=== PATIENT | female | born 1990 | race Caucasian/White ===

== ENCOUNTER 2016-05-18 16:46 | Emergency (ER) | payer BC ==
[2016-05-18] MEDS ORDERED: ONDANSETRON 4 MG/2 ML VIAL IVP STA (17:07)
[2016-05-18] MEDS ORDERED: SODIUM CHLORIDE 0.9% 1,000 ML IV ONE (17:07)
[2016-05-18] MEDS ORDERED: ONDANSETRON 4 MG/2 ML VIAL ONE (17:15)
[2016-05-18] MEDS ORDERED: ONDANSETRON ODT 4 MG Prepack 2 TL STA (18:20)
[2016-05-18] MEDS ORDERED: ONDANSETRON ODT 4 MG Prepack 2 TL ONE (18:23)
== END 2016-05-18 18:32 | disposition home or self-care (01) ==
DX: S09.90XA Unspecified injury of head, initial encounter (principal); K52.9 Noninfective gastroenteritis and colitis, unspecified; W07.XXXA Fall from chair, initial encounter

== ENCOUNTER 2017-06-12 08:35 | Outpatient (CLI) | payer OTHER ==
--- NOTE | 2017-06-12 13:21 | MRI Report ---
EXAM: RIGHT KNEE MRI WITHOUT CONTRAST EXAM DATE: 06/12/2017 09:56 AM. CLINICAL HISTORY: Right knee pain after running 1 month ago. Right knee swelling and bruising. COMPARISON: None. TECHNIQUE: Multiplanar, multisequence T1-weighted and fluid-sensitive sequences of the knee without c ontrast. Other: None. FINDINGS: Bones and articular cartilage: There is an approximately 2.3 cm AP by 1.6 cm medial to lateral nondis placed, stress type fracture at the medial aspect of the proximal tibial metaphysis. Larger area of m arrow edema around the fracture line. No bone lesions. Minimal marrow edema at the medial femoral con dyle. Articular cartilage is within normal limits. Medial Meniscus: The medial meniscus is intact. Lateral Meniscus: The lateral meniscus is intact. Cruciate Ligaments: The anterior and posterior cruciate ligaments are intact. Collateral Ligaments: The medial collateral and lateral collateral ligamentous structures are intact. Tendons: The quadriceps, patellar, semimembranosus, and popliteus tendons are unremarkable. Musculature: No edema or fatty atrophy. Other: No effusion. No popliteal cyst. No loose bodies. The medial and lateral retinacula are intact . Minimal subcutaneous edema at the anteromedial aspect of the knee. IMPRESSION: 1. Nondisplaced stress-type fracture at the medial aspect of the proximal tibial metaphysis. 2. No ligament or meniscal injury. 3. Minimal subcutaneous edema at the anteromedial aspect of the knee. [facility] MUSCULOSKELETAL RADIOLOGY SECTION The above findings were discussed with Quinn Callaway by Dr. Carson Lazcano at 13:19 hrs on 06/12/17. Referring Provider Line: [phone] SITE ID: [id number]
== END 2017-06-12 08:36 | disposition home or self-care (01) ==
LOC: DI 08:35
PROVIDERS: ATTEND Family Medicine
DX: M84.361A Stress fracture, right tibia, initial encounter for fracture (principal); R60.0 Localized edema

== ENCOUNTER 2017-08-17 13:27 | Emergency (ER) | payer MEDICAID, OTHER ==
[2017-08-17 13:55] VITALS: BP 139/78
--- NOTE | 2017-08-17 15:53 | ED Physician Documentation ---
PD HPI SKIN - Stated complaint Stated Complaint: BODY RASH - Chief complaint Chief Complaint: Wound - History obtained from History obtained from: Patient - History of Present Illness Timing - onset: Other (Several days worth of itchy burning rash especially on the dorsal forearms but also the anterior chest and the back of the neck. She has never had this before and there was no clear trigger. 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 There is no associated chest pain , breathing troubles, shortness of breath, or possibility of .) Review of Systems Constitutional: denies: Fever, Chills Nose: denies: Rhinorrhea / runny nose, Congestion Throat: denies: Sore throat Cardiac: denies: Chest pain / pressure, Palpitations Respiratory: denies: Dyspnea, Cough PD PAST MEDICAL HISTORY - Past Medical History Past Medical History: Yes Endocrine/Autoimmune: HyPOthyroidism - Past Surgical History Past Surgical History: No - Present Medications Home Medications: Ambulatory Orders Medication Instructions Recorded Confirmed predniSONE [Deltasone] 60 mg PO DAILY 5 Days tablet 08/17/17 - Allergies Allergies/Adverse Reactions: Allergies Allergy/AdvReac Type Severity Reaction Status Date / Time No Known Drug Allergies Allergy Verified 08/17/17 13:55 - Social History Does the pt smoke?: No Smoking Status: Never smoker Does the pt drink ETOH?: Yes Does the pt have substance abuse?: No - Immunizations Immunizations are current?: Yes - POLST Patient has POLST: No PD ED PE NORMAL - Vitals Vital signs reviewed: Yes - General General: Alert and oriented X 3, No acute distress - HEENT HEENT: Pharynx benign - Derm Derm: Other (She has a clear contact dermatitis that is focused over the dorsal forearms bilaterally, especially the left, mild to the back of the neck.) - Neuro Neuro: Alert and oriented X 3, Normal speech - Psych Psych: Normal mood, Normal affect Results - Vitals Vitals: Vital Signs - 24 hr 08/17/17 13:53 Temperature 36.8 C Heart Rate 75 Respiratory 16 Rate Blood Pressure 139/78 H O2 Saturation 100 Oxygen O2 Source Room air Departure - Departure Disposition: Home, Self Care Clinical Impression: Contact dermatitis Qualifiers: Contact dermatitis type: unspecified Contact dermatitis trigger: unspecified trigger Qualified Code(s): L25.9 - Unspecified contact dermatitis, unspecified cause Condition: Good Record reviewed to determine appropriate education?: Yes Instructions: ED Dermatitis Contact Follow-Up: [facility] [Provider Group] Prescriptions: predniSONE [Deltasone] 60 mg PO DAILY 5 Days tablet Comments: Your blood pressure was elevated today on check into the emergency department. This does not mean that you have hypertension, it is a common phenomenon to come to the emergency department and have elevated blood pressure. I recommend that you see your primary care physician within the week to have it rechecked when you are feeling better.
== END 2017-08-17 16:02 | disposition home or self-care (01) ==
LOC: ED 13:27
DX: L25.9 Unspecified contact dermatitis, unspecified cause (principal); R03.0 Elevated blood-pressure reading, without diagnosis of hypertension; E03.9 Hypothyroidism, unspecified
CPT/HCPCS: 99283

== ENCOUNTER 2018-01-06 08:59 | Emergency (ER) | payer MEDICAID ==
[2018-01-06] MEDS ORDERED: BENZOCAINE/MENTHOL LOZENGE MM STA ×2 (11:32→11:45)
[2018-01-06] MEDS ORDERED: BENZONATATE 100 MG CAPSULE PO STA (11:32)
--- NOTE | 2018-01-06 11:34 | ED Physician Documentation ---
History of Present Illness - Stated complaint Stated Complaint: SIMON/CONGESTION - Chief complaint Chief Complaint: Resp - Additonal information Additional information: hx from pt 3 days of head congestion sore throat cough and myalgias Review of Systems Constitutional: reports: Chills, Myalgias. denies: Fever Nose: reports: Congestion Throat: reports: Sore throat Respiratory: reports: Cough GI: reports: Diarrhea. denies: Vomiting : denies: Now EGA (denies) Endocrine: denies: Easy bruising / bleeding Immunocompromised: denies: Immunocompromised PD PAST MEDICAL HISTORY - Past Medical History Respiratory: Pneumonia, Other Endocrine/Autoimmune: HyPOthyroidism Other Past Medical History: bronchitis - Past Surgical History Past Surgical History: No - Present Medications Home Medications: Ambulatory Orders Medication Instructions Recorded Confirmed Azithromycin [Zithromax] 250 mg PO DAILY #6 tablet 01/06/18 Benzonatate [Tessalon] 100 mg PO TID PRN #20 capsule 01/06/18 Fluticasone [Flonase] 1 sprays SHANNAN BID PRN #1 bottle 01/06/18 guaiFENesin/DEXTROMETHORPHAN 10 ml PO Q6H PRN #120 ml 01/06/18 [Robitussin Dm] - Allergies Allergies/Adverse Reactions: Allergies Allergy/AdvReac Type Severity Reaction Status Date / Time No Known Drug Allergies Allergy Verified 01/06/18 09:17 - Social History Does the pt smoke?: No Smoking Status: Never smoker Does the pt drink ETOH?: No Does the pt have substance abuse?: No - Immunizations Immunizations are current?: No Immunizations: TDAP >10years/unknown - POLST Patient has POLST: No PD ED PE NORMAL - Vitals Vital signs reviewed: Yes - General General: Other (looks miserable) - HEENT HEENT: Ears normal, Moist mucous membranes. No: Pharynx benign (erytehma no exudate) - Neck Neck: Supple, no meningeal sign - Cardiac Cardiac: RRR - Respiratory Respiratory: No respiratory distress, Clear bilaterally - Extremities Extremities: No edema, No calf tenderness / cord Results - Vitals Vitals: Vital Signs - 24 hr 01/06/18 01/06/18 09:15 11:54 Temperature 36.6 C 36.7 C Heart Rate 66 62 Respiratory 14 18 Rate Blood Pressure 130/86 H 137/86 H O2 Saturation 100 99 Oxygen O2 Source Room air - Labs Labs: Laboratory Tests 01/06/18 11:30 Group A Strep Rapid Negative - Rads (name of study) CXR Radiology: See rad report (R basilar infiltrate) PD MEDICAL DECISION MAKING - Sepsis Event Vital Signs: Vital Signs - 24 hr 01/06/18 01/06/18 09:15 11:54 Temperature 36.6 C 36.7 C Heart Rate 66 62 Respiratory 14 18 Rate Blood Pressure 130/86 H 137/86 H O2 Saturation 100 99 Oxygen O2 Source Room air Departure - Departure Disposition: 01 Home, Self Care Clinical Impression: Pneumonia Qualifiers: Pneumonia type: due to unspecified organism Laterality: right Lung location: lower lobe of lung Qualified Code(s): J18.1 - Lobar pneumonia, unspecified organism Condition: Good Instructions: ED Pneumonia Adult Prescriptions: Azithromycin [Zithromax] 250 mg PO DAILY #6 tablet Benzonatate [Tessalon] 100 mg PO TID PRN #20 capsule PRN Reason: to ease cough Fluticasone [Flonase] 1 sprays SHANNAN BID PRN #1 bottle PRN Reason: allergies guaiFENesin/DEXTROMETHORPHAN [Robitussin Dm] 10 ml PO Q6H PRN #120 ml PRN Reason: Cough Comments: The strep swab was negative but the xray report does indicate pneumonia You are contagious You need to stay home and rest for at least three days Drink plenty of fluids Motrin and tylenol for pain or fever Tessalon and robitussin for the cough Flonase for the congestion and take the antibiotic as prescribed Forms: Activity restrictions
[2018-01-06 11:56] VITALS: BP 137/86
[2018-01-06] MEDS: guaiFENesin/DEXTROMETHORPHAN 10 ML UDC PO STA ×2 (11:56→11:57)
--- NOTE | 2018-01-06 12:04 | XRAY Report ---
Reason: cough Procedure Date: 01/06/2018 Accession Number: [id number] / [id number] Procedure: XR - Chest 2 View X-Ray CPT Code: 82823 FULL RESULT: EXAM: CHEST RADIOGRAPHY EXAM DATE: 01/06/2018 11:53 AM. CLINICAL HISTORY: Cough. COMPARISON: 05/14/2012. TECHNIQUE: 2 views. FINDINGS: Lungs/Pleura: Mild interstitial prominence with some peribronchial cuffing, a little more prominent in the right infrahilar region than elsewhere. No consolidation, effusion, or pneumothorax. Mediastinum: Heart and mediastinal contours are unremarkable. Other: None. IMPRESSION: Bronchitis versus subtle right basilar infiltrate. RADIA
--- NOTE | 2018-01-08 06:56 | ED Physician Documentation ---
ED Addendum - Addendum Addendum: 01/08/18 06:54 Chart accessed for culture review, throat culture growing beta-hemolytic strep group G. Per uptodate, high variability in macrolide resistance with this organism but as high as 15-25%. Beta-lactams are recommended agents. My recommendation is contact patient, continue with azithromycin if improving. If same or worse, stop azithromycin and start Augmentin 875mg PO BID x 7 days.
== END 2018-01-06 12:53 | disposition home or self-care (01) ==
LOC: ED 08:59
DX: J18.1 Lobar pneumonia, unspecified organism (principal); B95.4 Other streptococcus as the cause of diseases classified elsewhere
CPT/HCPCS: 71046; 87070; 87077; 87430; 99283; A9270

== ENCOUNTER 2018-04-27 15:47 | Emergency (ER) | payer MEDICAID ==
[2018-04-27 18:05] LABS: BASOPHILS # (AUTO) 0.1 10^3/uL (0.0-0.1); BASOPHILS % (AUTO) 0.4 %; EOSINOPHILS % (AUTO) 0.2 %; HGB - HEMOGLOBIN 14.6 g/dL (12.0-16.0); LYMPHOCYTES # (AUTO) 1.2 10^3/uL (1.5-3.5); LYMPHOCYTES % (AUTO) 9.4 %; MEAN CORPUSCULAR HEMOGLOBIN 29.7 pg (27.0-31.0); MEAN CORPUSCULAR HGB CONC 32.6 g/dL (32.0-36.0); MEAN CORPUSCULAR VOLUME 91.2 fL (81.0-99.0); MEAN PLATELET VOLUME 9.7 fL (7.9-10.8); MONOCYTES # (AUTO) 0.6 10^3/uL (0.0-1.0); MONOCYTES % (AUTO) 4.8 %; NEUTROPHILS # (AUTO) 11.1 10^3/uL (1.5-6.6); NEUTROPHILS % (AUTO) 85.2 %; PLT - PLATELET COUNT 227 10^3/uL (130-450); RED BLOOD COUNT 4.92 10^6/uL (4.20-5.40); RED CELL DISTRIBUTION WIDTH 13.2 % (12.0-15.0)
[2018-04-27 18:16] LABS: ALBUMIN 4.9 g/dL (3.2-5.5); ALBUMIN/GLOBULIN RATIO 1.3 (1.0-2.2); BILIRUBIN,TOTAL 0.5 mg/dL (0.2-1.0); CALCIUM 9.5 mg/dL (8.5-10.3); CREATININE 0.6 mg/dL (0.4-1.0); TOTAL PROTEIN 8.8 g/dL (6.7-8.2)
[2018-04-27 18:24] LABS: BILIRUBIN,URINE NEGATIVE (NEGATIVE); GLUCOSE, URINE (UA) NEGATIVE (NEGATIVE); KETONES,URINE (UA) NEGATIVE (NEGATIVE); LEUKOCYTE ESTERASE, URINE NEGATIVE (NEGATIVE); NITRITE,URINE NEGATIVE (NEGATIVE); OCCULT BLOOD,URINE MODERATE (NEGATIVE); PH,URINE 5.5 PH (5.0-7.5); PROTEIN,URINE NEGATIVE (NEGATIVE); UROBILINOGEN,URINE 0.2 (NORMAL) E.U./dL (NORMAL)
[2018-04-27 18:26] LABS: CLARITY,URINE CLEAR (CLEAR); HCG UR QUAL NEGATIVE
[2018-04-27 18:34] LABS: BACTERIA,URINE Rare /HPF (None Seen); RBC,URINE 0-5 /HPF (0-5); SQUAMOUS EPITHELIAL CELL,UR MOD Squamous (<= Few)
[2018-04-27] MEDS ORDERED: diphenhydrAMINE INJ 50 MG/ML VIAL IVP STA (19:09)
[2018-04-27] MEDS ORDERED: METOCLOPRAMIDE 10 MG/2 ML VIAL IVP STA (19:09)
[2018-04-27] MEDS ORDERED: KETOROLAC 15 MG/ML VIAL IVP STA (19:09)
[2018-04-27] MEDS ORDERED: HALOPERIDOL 5 MG/ML VIAL IM STA (20:40)
[2018-04-27] MEDS ORDERED: KETOROLAC 15 MG/ML VIAL IM STA (20:40)
[2018-04-27] MEDS ORDERED: ACETAMINOPHEN 325 MG TABLET PO STA (20:40)
--- NOTE | 2018-04-27 21:56 | ED Physician Documentation ---
History of Present Illness - Stated complaint Stated Complaint: nausea/vomiting/stress - Chief complaint Chief Complaint: Abd Pain - History obtained from History obtained from: Patient - History of Present Illness Timing: Prior to arrival (1 hr) Pain level max: 6 Pain level now: 3 Severity Comments: mild Quality: sharp Radiates to: None Improved by: Nothing Worsened by: Light Associated symptoms: Nausea and vomiting Review of Systems Ten Systems: 10 systems reviewed and negative Constitutional: reports: Reviewed and negative Eyes: reports: Reviewed and negative Ears: reports: Reviewed and negative Nose: reports: Reviewed and negative Throat: reports: Reviewed and negative Cardiac: reports: Reviewed and negative Respiratory: reports: Reviewed and negative GI: reports: Reviewed and negative : reports: Reviewed and negative Skin: reports: Reviewed and negative Musculoskeletal: reports: Reviewed and negative Neurologic: reports: Reviewed and negative Psychiatric: reports: Reviewed and negative Endocrine: reports: Reviewed and negative Immunocompromised: reports: Reviewed and negative PD PAST MEDICAL HISTORY - Past Medical History Past Medical History: No Cardiovascular: None Respiratory: Pneumonia, Other Neuro: None Endocrine/Autoimmune: HyPOthyroidism GI: None TRAIN ENGINEER: None : None HEENT: None Psych: Post traumatic stress disorder, Other Musculoskeletal: None Derm: None Other Past Medical History: learning disability - Past Surgical History Past Surgical History: No Other past surgical history: Reviewed and not pertinent - Present Medications Home Medications: Ambulatory Orders Medication Instructions Recorded Confirmed Azithromycin [Zithromax] 250 mg PO DAILY #6 tablet 01/06/18 Benzonatate [Tessalon] 100 mg PO TID PRN #20 capsule 01/06/18 Fluticasone [Flonase] 1 sprays SHANNAN BID PRN #1 bottle 01/06/18 guaiFENesin/DEXTROMETHORPHAN 10 ml PO Q6H PRN #120 ml 01/06/18 [Robitussin Dm] - Allergies Allergies/Adverse Reactions: Allergies Allergy/AdvReac Type Severity Reaction Status Date / Time No Known Drug Allergies Allergy Verified 04/27/18 15:57 - Living Situation Living Situation: reports: With family Living Arrangement: reports: At home - Social History Does the pt smoke?: No Smoking Status: Never smoker Does the pt drink ETOH?: No Does the pt have substance abuse?: Yes Substance Use and Type: Marijuana - Family History Family history: reports: Other (Reviewed and not pertinent) - Immunizations Immunizations are current?: No Immunizations: TDAP >10years/unknown - POLST Patient has POLST: No PD ED PE NORMAL - Vitals Vital signs reviewed: Yes - General General: Alert and oriented X 3, No acute distress - HEENT HEENT: PERRL - Neck Neck: Supple, no meningeal sign - Cardiac Cardiac: RRR, No murmur - Respiratory Respiratory: Clear bilaterally - Abdomen Abdomen: Normal bowel sounds, Soft, Non tender, Non distended - Derm Derm: Warm and dry - Extremities Extremities: No deformity - Neuro Neuro: Alert and oriented X 3 - Psych Psych: Normal mood, Normal affect Results - Vitals Vitals: Vital Signs - 24 hr 04/27/18 04/27/18 04/27/18 15:55 18:28 21:11 Temperature 36.8 C 36.7 C 36.7 C Heart Rate 77 70 66 Respiratory 18 18 18 Rate Blood Pressure 142/95 H 134/86 H 117/72 O2 Saturation 100 100 98 04/27/18 22:04 Temperature 36.8 C Heart Rate 72 Respiratory 16 Rate Blood Pressure 113/84 H O2 Saturation 99 Oxygen O2 Source Room air - Labs Labs: Laboratory Tests 04/27/18 04/27/18 04/27/18 17:59 17:59 18:10 WBC 13.0 H RBC 4.92 Hgb 14.6 Hct 44.9 MCV 91.2 MCH 29.7 MCHC 32.6 RDW 13.2 Plt Count 227 MPV 9.7 Neut # (Auto) 11.1 H Lymph # (Auto) 1.2 L [place] # (Auto) 0.6 Eos # (Auto) 0.0 Baso # (Auto) 0.1 Absolute Nucleated RBC 0.01 Nucleated RBC % 0.1 Sodium 135 Potassium 3.7 Chloride 102 Carbon Dioxide 25 Anion Gap 8.0 BUN 16 Creatinine 0.6 Estimated GFR (MDRD) 119 Glucose 100 Calcium 9.5 Total Bilirubin 0.5 AST 32 ALT 54 Alkaline Phosphatase 86 Total Protein 8.8 H Albumin 4.9 Globulin 3.9 Albumin/Globulin Ratio 1.3 Lipase 26 Urine Color YELLOW Urine Clarity CLEAR Urine pH 5.5 Ur Specific [place] >=1.030 H Urine Protein NEGATIVE Urine Glucose (UA) NEGATIVE Urine Ketones NEGATIVE Urine Occult Blood MODERATE H Urine Nitrite NEGATIVE Urine Bilirubin NEGATIVE Urine Urobilinogen 0.2 (NORMAL) Ur Leukocyte Esterase NEGATIVE Urine RBC 0-5 Urine WBC 0-3 Ur Squamous Epith Cells MOD Squamous H Urine Bacteria Rare Ur Microscopic Review INDICATED Urine Culture Comments NOT INDICATED Urine HCG, Qual NEGATIVE PD MEDICAL DECISION MAKING - ED course Complexity details: re-evaluated patient, considered differential, d/w patient, d/w family ED course: 27-year-old female presents with headache, nausea, vomiting. Headache was not worse of life and was gradual in onset. No concern at this time and no clinical indication of meningitis or subarachnoid hemorrhage. Headache improved with treatment. Patient discharged home with family and will follow-up with PCP. Departure - Departure Disposition: 01 Home, Self Care Clinical Impression: Headache Qualifiers: Headache type: unspecified Headache chronicity pattern: acute headache Intractability: not intractable Qualified Code(s): R51 - Headache Nausea and vomiting Qualifiers: Vomiting type: unspecified Vomiting Intractability: non-intractable Qualified Code(s): R11.2 - Nausea with vomiting, unspecified Condition: Good Instructions: ED Headache Migraine, ED Nausea Vomiting Ch Follow-Up: Your, PCP [Other] Comments: Follow up with PCP within 24 hours. Return w worsening symptoms. Discharge Date/Time: 04/27/18 22:10
[2018-04-27 22:05] VITALS: BP 113/84
== END 2018-04-27 22:10 | disposition home or self-care (01) ==
LOC: ED 15:47
DX: R51 Headache (principal); R11.2 Nausea with vomiting, unspecified; E03.9 Hypothyroidism, unspecified
CPT/HCPCS: 36415; 80053; 81001; 81025; 83690; 85025; 96372; 99283; 99284; A9270; 81003; 87086

== ENCOUNTER 2020-01-09 21:05 | Emergency (ER) | payer MEDICAID ==
--- NOTE | 2020-01-09 21:24 | ED Physician Documentation ---
History of Present Illness - Stated complaint Stated Complaint: ALLERGIC REACTION - Chief complaint Chief Complaint: Allergic Rx - History obtained from History obtained from: Patient - Additonal information Additional information: Patient is a 29-year-old female who presents with chief complaint of rash to bilateral upper extremities tightness in her throat with palpitations and shortness of breath relieved with Benadryl denies any other complaints.Denies any new medication use denies any history of anaphylaxis denies any fevers. Review of Systems Constitutional: reports: Reviewed and negative Eyes: reports: Reviewed and negative Ears: reports: Reviewed and negative Nose: reports: Reviewed and negative Throat: reports: Reviewed and negative Cardiac: reports: Palpitations Respiratory: reports: Dyspnea GI: reports: Reviewed and negative : reports: Reviewed and negative Skin: reports: Rash Musculoskeletal: reports: Reviewed and negative Neurologic: reports: Reviewed and negative Psychiatric: reports: Reviewed and negative Endocrine: reports: Reviewed and negative Immunocompromised: reports: Reviewed and negative PD PAST MEDICAL HISTORY - Past Medical History Cardiovascular: None Respiratory: Pneumonia, Other Neuro: None Endocrine/Autoimmune: HyPOthyroidism GI: None VISUAL JOURNALIST: None : None HEENT: None Psych: Post traumatic stress disorder, Other Musculoskeletal: None Derm: None - Past Surgical History Past Surgical History: No - Present Medications Home Medications: Ambulatory Orders Medication Instructions Recorded Confirmed Azithromycin [Zithromax] 250 mg PO DAILY #6 tablet 01/06/18 Benzonatate [Tessalon] 100 mg PO TID PRN #20 capsule 01/06/18 Fluticasone [Flonase] 1 sprays SHANNAN BID PRN #1 bottle 01/06/18 guaiFENesin/DEXTROMETHORPHAN 10 ml PO Q6H PRN #120 ml 01/06/18 [Robitussin Dm] EPINEPHrine [Epinephrine] 0.3 mg IJ ONCE PRN #1 auto.injct 01/09/20 hydrOXYzine pamoate [Hydroxyzine 25 mg PO Q8HR PRN #10 capsule 01/09/20 Pamoate] - Allergies Allergies/Adverse Reactions: Allergies Allergy/AdvReac Type Severity Reaction Status Date / Time No Known Drug Allergies Allergy Verified 01/09/20 21:13 - Social History Does the pt smoke?: No Smoking Status: Never smoker Does the pt drink ETOH?: No Does the pt have substance abuse?: Yes Substance Use and Type: Marijuana - Immunizations Immunizations are current?: No Immunizations: TDAP >10years/unknown - POLST Patient has POLST: No PD ED PE NORMAL - Vitals Vital signs reviewed: Yes - General General: Alert and oriented X 3, No acute distress, Well developed/nourished - HEENT HEENT: Atraumatic, PERRL, EOMI, Ears normal, Moist mucous membranes, Pharynx benign, Dentition benign - Neck Neck: Supple, no meningeal sign, No bony TTP, No adenopathy, Thyroid normal, No JVD, No bruit - Cardiac Cardiac: RRR, No murmur, No gallop, No rub, Strong equal pulses - Respiratory Respiratory: No respiratory distress, Clear bilaterally - Abdomen Abdomen: Normal bowel sounds, Soft, Non tender, Non distended, No organomegaly - Female Female : Deferred - Rectal Rectal: Deferred - Back Back: No CVA TTP, No spinal TTP - Derm Derm: Normal color, Warm and dry, Other (Few papular areas that are 1 to 2 mm on bilateral forearms no involvement of the hands or feet no petechiae or purpura no involvement of the mucous membranes) - Extremities Extremities: No deformity, No tenderness to palpate, Normal ROM s pain, No edema, No calf tenderness / cord - Neuro Neuro: Alert and oriented X 3, cylinder loader 2-12 intact, No motor deficit, No sensory deficit, Normal speech - Psych Psych: Normal mood, Normal affect Results - Vitals Vitals: Vital Signs - 24 hr 01/09/20 01/09/20 01/09/20 21:05 21:17 21:23 Temperature 36.7 C 36.7 C Heart Rate 70 70 Respiratory 18 18 Rate Blood Pressure 142/75 H 142/75 H 107/93 H O2 Saturation 99 99 100 01/09/20 01/09/20 22:05 22:32 Temperature 36.7 C 36.7 C Heart Rate 68 78 Respiratory 18 18 Rate Blood Pressure 141/90 H 138/90 H O2 Saturation 98 99 Oxygen O2 Source Room air PD MEDICAL DECISION MAKING - ED course ED course: 29-year-old female with mild rash but associated with palpitations and shortness of breath and feeling of swelling in the throat that is resolved with Benadryl. Observed here for over an hour symptoms have resolved will provide a prescription for EpiPen in case of an anaphylactic emergency as well as some hydroxyzine to new to use if she develops urticaria or itching. She may also take [id number] Benadryl or Claritin or Zyrtec or Pepcid. No indication for corticosteroids currently. Would encourage close follow-up with a primary care provider return the emergency department with any concerns. Departure - Departure Disposition: 01 Home, Self Care Clinical Impression: Allergic reaction Qualifiers: Encounter type: initial encounter Qualified Code(s): T78.40XA - Allergy, unspecified, initial encounter Condition: Stable Instructions: ED Allergic Reaction General Other Follow-Up: Singh Morillo MD [Provider Admit Priv/Credential] - Tomorrow Prescriptions: hydrOXYzine pamoate [Hydroxyzine Pamoate] 25 mg PO Q8HR PRN #10 capsule PRN Reason: Itching EPINEPHrine [Epinephrine] 0.3 mg IJ ONCE PRN #1 auto.injct PRN Reason: Anaphylaxis Comments: Take either Benadryl or Claritin or Zyrtec as needed for your allergic symptoms and rash. You may take hydroxyzine as needed for severe itching. An EpiPen is prescribed for you as well if you develop anaphylaxis. Discharge Date/Time: 01/09/20 22:34
[2020-01-09 22:34] VITALS: BP 138/90
== END 2020-01-09 22:34 | disposition home or self-care (01) ==
LOC: ED 21:05
DX: T78.40XA Allergy, unspecified, initial encounter (principal); X58.XXXA Exposure to other specified factors, initial encounter
CPT/HCPCS: 99282; 99284

== ENCOUNTER 2022-08-17 19:19 | Emergency (ER) | payer MEDICAID ==
--- NOTE | 2022-08-17 19:45 | XRAY Report ---
PROCEDURE: Chest 1 View X-Ray INDICATIONS: Chest pain TECHNIQUE: One view of the chest was acquired. COMPARISON: Chest x-ray 01/06/2018 FINDINGS: Surgical changes and devices: None. Lungs and pleura: No pleural effusions or pneumothorax. Lungs are clear. Mediastinum: Mediastinal contours appear normal. Heart size is normal. Bones and chest wall: No suspicious bony lesions. Overlying soft tissues appear unremarkable. IMPRESSION: No acute cardiopulmonary process. Reviewed by: Naomi Dye MD on 08/17/2022 7:43 PM PDT Approved by: Naomi Dye MD on 08/17/2022 7:43 PM PDT Station ID: [id number]
[2022-08-17 19:54] LABS: BASOPHILS # (AUTO) 0.1 10^3/uL (0.0-0.1); BASOPHILS % (AUTO) 0.8 %; EOSINOPHILS # (AUTO) 0.1 10^3/uL (0.0-0.7); EOSINOPHILS % (AUTO) 0.9 %; HCT - HEMATOCRIT 43.3 % (37.0-47.0); HGB - HEMOGLOBIN 14.3 g/dL (12.0-16.0); LYMPHOCYTES # (AUTO) 2.4 10^3/uL (1.5-3.5); LYMPHOCYTES % (AUTO) 21.8 %; MEAN PLATELET VOLUME 12.3 fL (7.9-10.8); MONOCYTES # (AUTO) 0.8 10^3/uL (0.0-1.0); MONOCYTES % (AUTO) 7.5 %; NEUTROPHILS # (AUTO) 7.7 10^3/uL (1.5-6.6); NEUTROPHILS % (AUTO) 68.7 %; PLT - PLATELET COUNT 200 10^3/uL (130-450); RED BLOOD COUNT 4.76 10^6/uL (4.20-5.40); WHITE BLOOD COUNT 11.2 x10^3/uL (4.8-10.8)
[2022-08-17 19:55] VITALS: BP 173/114
[2022-08-17] MEDS ORDERED: ACETAMINOPHEN 500 MG TABLET PO STA (19:58)
--- NOTE | 2022-08-17 20:00 | ED Physician Documentation ---
PD HPI CHEST PAIN - Stated complaint Stated Complaint: CHEST PX - Chief complaint Chief Complaint: Cardiac - History obtained from History obtained from: Patient - Additional information Additional information: 32-year-old woman who has a family history of thromboembolic disease and has a history of factor V Leiden, I think probably heterozygous given her description and the fact that she was told that she was "a carrier." She did take Lovenox during 2 years ago. No personal history of thromboembolic disease and no personal history of heart disease. At 2 PM today she developed some substernal and left rib pressure that is nonradiating. She is not short of breath with it. She denies pedal edema or calf pain. She did travel A little over a month ago to [place]. PD PAST MEDICAL HISTORY - Past Medical History Cardiovascular: None Respiratory: Pneumonia, Other Neuro: None Endocrine/Autoimmune: HyPOthyroidism GI: None SYSTEMS SOFTWARE ENGINEER: None : None HEENT: None Psych: Post traumatic stress disorder, Other Musculoskeletal: None Derm: None - Past Surgical History Past Surgical History: No - Present Medications Home Medications: Ambulatory Orders Medication Instructions Recorded Confirmed Azithromycin [Zithromax] 250 mg PO DAILY #6 tablet 01/06/18 Benzonatate [Tessalon] 100 mg PO TID PRN #20 capsule 01/06/18 Fluticasone [Flonase] 1 sprays SHANNAN BID PRN #1 bottle 01/06/18 guaiFENesin/DEXTROMETHORPHAN 10 ml PO Q6H PRN #120 ml 01/06/18 [Robitussin Dm] EPINEPHrine [Epinephrine] 0.3 mg IJ ONCE PRN #1 auto.injct 01/09/20 hydrOXYzine pamoate [Hydroxyzine 25 mg PO Q8HR PRN #10 capsule 01/09/20 Pamoate] Levothyroxine Sodium [Synthroid] 150 mcg PO DAILY #30 tablet 08/17/22 hydroCHLOROthiazide [Hydrodiuril] 12.5 mg PO DAILY #30 08/17/22 - Allergies Allergies/Adverse Reactions: Allergies Allergy/AdvReac Type Severity Reaction Status Date / Time warfarin Allergy Unknown Verified 08/17/22 19:24 - Social History Does the pt smoke?: No Smoking Status: Never smoker Does the pt drink ETOH?: No Does the pt have substance abuse?: Yes - Immunizations Immunizations are current?: No Immunizations: TDAP >10years/unknown - POLST Patient has POLST: No PD ED PE NORMAL - Vitals Vital signs reviewed: Yes - General General: Alert and oriented X 3, No acute distress - HEENT HEENT: PERRL, EOMI - Neck Neck: Supple, no meningeal sign, No bony TTP - Cardiac Cardiac: RRR, No murmur - Respiratory Respiratory: No respiratory distress, Clear bilaterally - Abdomen Abdomen: Non tender - Extremities Extremities: No edema, No calf tenderness / cord - Neuro Neuro: Alert and oriented X 3, Normal speech - Psych Psych: Normal mood, Normal affect Results - Vitals Vitals: Vital Signs - 24 hr 08/17/22 08/17/22 08/17/22 19:24 19:55 20:35 Temperature 36.5 C Heart Rate 75 75 Respiratory 18 14 16 Rate Blood Pressure 155/106 H 173/114 H O2 Saturation 100 100 98 Oxygen O2 Source Room air - EKG (time done) 1933 EKG releavant findings:: EKG personally interpreted by author of this note. Relevant findings are: Rate: Rate (enter#) (74) Rhythm: NSR [place]: Normal Intervals: Normal HI QRS: Normal Ischemia: Normal ST segments - Labs Labs: Laboratory Tests 08/17/22 08/17/22 08/17/22 19:48 19:48 19:55 WBC 11.2 H RBC 4.76 Hgb 14.3 Hct 43.3 MCV 91.0 MCH 30.0 MCHC 33.0 RDW 13.0 Plt Count 200 MPV 12.3 H Neut # (Auto) 7.7 H Lymph # (Auto) 2.4 [place] # (Auto) 0.8 Eos # (Auto) 0.1 Baso # (Auto) 0.1 Absolute Nucleated RBC 0.00 Nucleated RBC % 0.0 D-Dimer 235.4 Sodium Potassium Chloride Carbon Dioxide Anion Gap BUN Creatinine Estimated GFR (MDRD) Glucose Calcium Total Bilirubin AST ALT Alkaline Phosphatase Troponin I High Sens 3.1 Total Protein Albumin Globulin Albumin/Globulin Ratio Lipase 08/17/22 20:07 WBC RBC Hgb Hct MCV MCH MCHC RDW Plt Count MPV Neut # (Auto) Lymph # (Auto) [place] # (Auto) Eos # (Auto) Baso # (Auto) Absolute Nucleated RBC Nucleated RBC % D-Dimer Sodium 138 Potassium 3.6 Chloride 103 Carbon Dioxide 26 Anion Gap 9.0 BUN 12 Creatinine 0.8 Estimated GFR (MDRD) 83 L Glucose 97 Calcium 9.2 Total Bilirubin 0.4 AST 25 ALT 39 Alkaline Phosphatase 85 Troponin I High Sens Total Protein 8.3 H Albumin 4.3 Globulin 4.0 Albumin/Globulin Ratio 1.1 Lipase 30 - Rads (name of study) 1V CHEST Relevant Findings:: Final report received, EMP independent interpretation of test PD Medical Decision Making - ED course ED course: 32-year-old woman presents with about 5 to 6 hours of chest pain with a nonischemic EKG. Consideration to the usual causes of chest pain was given including ACS, PE especially in light of her history of at least heterozygous factor V Leiden. Nothing in the history or physical to suggest dissection. CBC normal save nonspecific mild leukocytosis. D-dimer normal/negative. CMP and troponin normal/negative. Heart score 0 She has not seen a primary care physician in quite some time and would like a refill of her Synthroid. She also notes that her blood pressure is always elevated and would like to start an antihypertensive. Departure - Departure Disposition: 01 Home, Self Care Clinical Impression: Chest pain Qualifiers: Chest pain type: unspecified Qualified Code(s): R07.9 - Chest pain, unspecified Condition: Good Record reviewed to determine appropriate education?: Yes Instructions: ED Chest Pain NonCardiac Follow-Up: Quinn Callaway DO [Provider Admit Priv/Credential] - Prescriptions: hydroCHLOROthiazide [Hydrodiuril] 12.5 mg PO DAILY #30 Levothyroxine Sodium [Synthroid] 150 mcg PO DAILY #30 tablet Comments: Cause of your chest pain is not clear, but testing for heart attack and blood clots were negative. Return for new or worsening symptoms. Per your request I am refilling your Synthroid and starting you on something for blood pressure. Primary care follow-up is necessary, call tomorrow for next available appointment with your primary care physician. If you do not have 1, the local physician taking ED follow-up call this week is listed above. Discharge Date/Time: 08/17/22 20:42
[2022-08-17 20:24] LABS: ALBUMIN 4.3 g/dL (3.2-5.5); ALBUMIN/GLOBULIN RATIO 1.1 (1.0-2.2); BILIRUBIN,TOTAL 0.4 mg/dL (0.2-1.0); CALCIUM 9.2 mg/dL (8.5-10.3); CREATININE 0.8 mg/dL (0.4-1.0); POTASSIUM 3.6 mmol/L (3.5-5.0); TOTAL PROTEIN 8.3 g/dL (6.7-8.2)
== END 2022-08-17 20:42 | disposition home or self-care (01) ==
LOC: ED 19:19
DX: R07.9 Chest pain, unspecified (principal)
CPT/HCPCS: 36415; 71045; 80053; 83690; 84484; 85025; 85379; 93005; 99284; A9270